=== PATIENT | female | born 1990 | race Caucasian/White ===

== ENCOUNTER 2017-12-30 12:17 | Emergency (ER) | payer BC ==
--- NOTE | 2017-12-30 12:20 | ER Report ---
History and Physical Time Seen By MD: 12:19 HPI/ROS This is a 27-year-old female who was brought in by ambulance after falling off of her horse. The patient does not remember the incident, but both paramedics and witnesses say she did have a helmet on. The helmet is intact. The patient remembers riding her horse in a large open field, and does not remember at which point she fell off the horse. The worse return to the barn without the patient at which point witnesses started to look for the patient and found her in the field semiconscious. Upon arrival to the emergency department, the patient is awake and alert but does not remember the turn of events. She is only complaining of a headache. No focal neuro deficits and no pain in her neck. She is not intoxicated and denies any other illicit drug use. She has no sign of his seizure such as tongue or lip lacerations, and no loss of bowel or bladder. Remainder of the 14 system rev: Yes Home Meds Active Scripts Ondansetron Hcl (ZOFRAN) 4 Mg Tablet, 4 MG PO Q6-8H for 5 Days, #20 TAB Prov:ADRIANA VEGA MD 12/30/17 Reviewed Nurses Notes: Yes Old Medical Records Reviewed: Yes Hx Smoking: No Smoking Status: Never Smoker Exposure to Second Hand Smoke?: No Hx Substance Use Disorder: No Hx Alcohol Use: No Constitutional Physical Exam General Appearance: The patient is alert, has no immediate need for airway p rotection and no current signs of toxicity. Head: no lacerations or hematomas. Eyes: Pupils equal and round no injection. Respiratory: Chest is non tender, lungs are clear to auscultation. Cardiac: regular rate and rhythm Gastrointestinal: Abdomen is soft and non tender, no masses, bowel sounds normal. Musculoskeletal: No spinal TTP Neck: Neck is supple and non tender. Extremities have full range of motion and are non tender. Skin: No rashes or lesions. DIFFERENTIAL DIAGNOSIS: After history and physical exam differential diagnosis was considered for intracranial hemorrhage, concussion, other traumatic injuries to include spinal injury. Medical Decision Making Data Points Laboratory Hematology Test 12/30/17 12:20 Red Blood Count 5.31 M/uL (4.17-5.56) Mean Corpuscular Volume 92.7 fL (80.0-96.0) Mean Corpuscular Hemoglobin 31.4 pg (26.0-33.0) Mean Corpuscular Hemoglobin Concent 33.9 g/dL (32.0-36.0) Red Cell Distribution Width 13.9 % (11.5-14.5) Mean Platelet Volume 9.2 fL (7.2-11.1) Neutrophils (%) (Auto) 38.4 % (39.4-72.5) Lymphocytes (%) (Auto) 50.7 % (17.6-49.6) Monocytes (%) (Auto) 9.1 % (4.1-12.4) Eosinophils (%) (Auto) 0.8 % (0.4-6.7) Basophils (%) (Auto) 1.0 % (0.3-1.4) Nucleated RBC Relative Count (auto) 0.1 /100WBC Neutrophils # (Auto) 4.0 K/uL (2.0-7.4) Lymphocytes # (Auto) 5.3 K/uL (1.3-3.6) Monocytes # (Auto) 0.9 K/uL (0.3-1.0) Eosinophils # (Auto) 0.1 K/uL (0.0-0.5) Basophils # (Auto) 0.1 K/uL (0.0-0.1) Nucleated RBC Absolute Count (auto) 0.01 K/uL Peripheral Blood Smear No Y/N Sodium Level 141 mmol/L (137-145) Potassium Level 3.3 mmol/L (3.5-5.0) Chloride Level 105 mmol/L (98-107) Carbon Dioxide Level 18 mmol/L (22-31) Blood Urea Nitrogen 13 mg/dl (7-18) Creatinine 0.90 mg/dl (0.52-1.04) Glomerular Filtration Rate Calc > 60.0 Random Glucose 145 mg/dl (75-110) Calcium Level 10.0 mg/dl (8.4-10.2) Total Bilirubin 0.5 mg/dl (0.2-1.3) Aspartate Amino Transf (AST/SGOT) 48 U/L (0-35) Alanine Aminotransferase (ALT/SGPT) 30 U/L (0-56) Alkaline Phosphatase 72 U/L (0-126) Total Protein 7.3 g/dl (6.3-8.2) Albumin 4.6 g/dl (3.5-5.0) Human Chorionic Gonadotropin, Qual Negative (NEGATIVE) Chemistry Test 12/30/17 12:20 White Blood Count 10.4 k/uL (4.5-11.0) Red Blood Count 5.31 M/uL (4.17-5.56) Hemoglobin 16.7 g/dL (12.0-16.0) Hematocrit 49.2 % (34.0-47.0) Mean Corpuscular Volume 92.7 fL (80.0-96.0) Mean Corpuscular Hemoglobin 31.4 pg (26.0-33.0) Mean Corpuscular Hemoglobin Concent 33.9 g/dL (32.0-36.0) Red Cell Distribution Width 13.9 % (11.5-14.5) Platelet Count 337 K/uL (150-450) Mean Platelet Volume 9.2 fL (7.2-11.1) Neutrophils (%) (Auto) 38.4 % (39.4-72.5) Lymphocytes (%) (Auto) 50.7 % (17.6-49.6) Monocytes (%) (Auto) 9.1 % (4.1-12.4) Eosinophils (%) (Auto) 0.8 % (0.4-6.7) Basophils (%) (Auto) 1.0 % (0.3-1.4) Nucleated RBC Relative Count (auto) 0.1 /100WBC Neutrophils # (Auto) 4.0 K/uL (2.0-7.4) Lymphocytes # (Auto) 5.3 K/uL (1.3-3.6) Monocytes # (Auto) 0.9 K/uL (0.3-1.0) Eosinophils # (Auto) 0.1 K/uL (0.0-0.5) Basophils # (Auto) 0.1 K/uL (0.0-0.1) Nucleated RBC Absolute Count (auto) 0.01 K/uL Peripheral Blood Smear No Y/N Glomerular Filtration Rate Calc > 60.0 Calcium Level 10.0 mg/dl (8.4-10.2) Total Bilirubin 0.5 mg/dl (0.2-1.3) Aspartate Amino Transf (AST/SGOT) 48 U/L (0-35) Alanine Aminotransferase (ALT/SGPT) 30 U/L (0-56) Alkaline Phosphatase 72 U/L (0-126) Total Protein 7.3 g/dl (6.3-8.2) Albumin 4.6 g/dl (3.5-5.0) Human Chorionic Gonadotropin, Qual Negative (NEGATIVE) ED Course/Re-evaluation ED Course No acute traumatic injuries noted other then a mild concussion. Patient is now eating and drinking and ambulating back and forth to the restroom. I gave her strict instructions as far as how to take care of a concussion. Suggest that she not write her horse until she is cleared for her concussion. She voices understanding. Her boyfriend is at the bedside and also agrees. Headache is improved. I counseled her to take Tylenol or ibuprofen if any pain continues. Decision to Disposition Date: Dec 30, 2017 Decision to Disposition Time: 15:05 Depart Departure Latest Vital Signs Impression: Primary Impression: Concussion Condition: Improved Disposition: HOME OR SELF-CARE New Scripts Ondansetron Hcl (ZOFRAN) 4 Mg Tablet 4 MG PO Q6-8H for 5 Days, #20 TAB Prov: ADRIANA VEGA MD 12/30/17 Patient Instructions: Concussion (ED) Problem Qualifiers Primary Impression: Concussion Encounter type: initial encounter Loss of consciousness presence/duration: with LOC of 30 min or less Qualified Codes: S06.0X1A - Concussion with loss of consciousness of 30 minutes or less, initial encounter ADRIANA VEGA MD Dec 30, 2017 12:19
[2017-12-30] MEDS ORDERED: MORPHINE 4 MG/ML SDV IVP ONE (12:40)
[2017-12-30] MEDS ORDERED: NS(*) 0.9% 1000 ML BAG 1,000 ML IV ONE (12:40)
[2017-12-30] MEDS ORDERED: ONDANSETRON 4 MG/2 ML VIAL IVP ONE ×2 (12:40→14:25)
[2017-12-30 12:44] LABS: PLATELET COUNT, AUTOMATED 337 K/uL (150-450)
[2017-12-30] MEDS ORDERED: IOPAMIDOL 76% 100 ML INFUS BTL 100 ML ONE (12:55)
[2017-12-30] MEDS ORDERED: DIPHTH/TETANUS/ACEL. PERTUSSIS IM ONLY ONE (13:25)
--- NOTE | 2017-12-30 13:40 | RADIOLOGY IMAGING REPORT ---
FACILITY: [facility] - [place] PATIENT NAME: Sammie Masterson : 1990 MR: [id number] V: [id number] EXAM DATE: ORDERING PHYSICIAN: ADRIANA VEGA TECHNOLOGIST: Location: [facility] Patient: Sammie Masterson : 1990 Visit/Account:[id number] Date of Sevice: 12/30/2017 CHEST SINGLE AP Indication: Fall off horse. Comparison: None available Findings: The lungs are clear. No pneumothorax or pleural effusion. Heart size is normal. IMPRESSION: 1. No acute cardiopulmonary process. Report Dictated By: Olu Noyola at 12/30/2017 1:22 PM Report E-Signed By: Olu Noyola at 12/30/2017 1:37 PM WSN:[id number]
--- NOTE | 2017-12-30 13:43 | RADIOLOGY IMAGING REPORT ---
FACILITY: [facility] PATIENT NAME: Sammie Masterson : 1990 MR: [id number] V: [id number] EXAM DATE: ORDERING PHYSICIAN: ADRIANA VEGA TECHNOLOGIST: [place] [facility] [place]ammie [place] : 1990 Visit/Account:[id number] Date of Sevice: 12/30/2017 Examination: Right femur 2 views HISTORY: Fall off horse. FINDINGS: Frontal and lateral views of the right femur are obtained a total of 4 images. No acute fra cture or osseous abnormality is seen. IMPRESSION: 1. No acute fracture of the right femur. Report Dictated By: Olu Noyola at 12/30/2017 1:37 PM Report E-Signed By: Olu Noyola at 12/30/2017 1:40 PM WSN:[id number]
--- NOTE | 2017-12-30 13:56 | RADIOLOGY IMAGING REPORT ---
[facility] PATIENT NAME: Sammie Masterson : 1990 MR: [id number] V: [id number] EXAM DATE: ORDERING PHYSICIAN: ADRIANA VEGA TECHNOLOGIST: Location: Patient: Sammie Masterson : 1990 Visit/Account:[id number] Date of Sevice: 12/30/2017 COMPUTED TOMOGRAPHY OF THE CHEST, ABDOMEN, AND PELVIS with CONTRAST DATE OF EXAM: 12/30/2017. INDICATION: . fall off horse. . TECHNIQUE: Contiguous axial CT images were obtained through the chest, abdomen, and pelvis after 80 cc [id number]. Coronal and sagittal reformatted images were submitted. COMPARISON: Chest radiograph of the same day. FINDINGS: Thyroid: The thyroid is incompletely imaged. No hematoma within the imaged region of the neck. Thoracic inlet: No adenopathy. Normal course and caliber of the imaged neck vessels. Heart and great vessels: Heart size is normal. Normal course and caliber of the great vessels. Mediastinum and mckinley: No mediastinal or hilar adenopathy. No hemomediastinum. No pneumomediastinum. There is residual thymic tissue. Lungs and pleura: Mild dependent atelectasis. No pulmonary contusion. No pneumothorax. No effusion o r consolidation. Breast and axilla: Breast tissue is unremarkable. Liver and hepatic vasculature: Indeterminate 1.1 cm hypodensity in the right lobe of the liver on se maegan 4 image 286. Gallbladder and bile ducts: Normal gallbladder. Spleen: Normal Pancreas: Normal Adrenals: Normal Kidneys, ureters and bladder: Normal appearing kidneys. Retroperitoneum and aorta: Normal caliber aorta. GI tract, mesentery and peritoneum: No bowel obstruction. No free fluid or free air. Uterus and adnexa: An IUD is present within the uterine fundus. Probable involuting cyst at the left ovary. Bones and soft tissues: No acute osseous abnormality IMPRESSION: No clear evidence of acute intrathoracic or intra-abdominal abnormality. One of the following dose optimization techniques was utilized in the performance of this exam: Autom ated exposure control; adjustment of the mA and/or kV according to the patient's size; or use of an i terative reconstruction technique. Specific details can be referenced in the facility's radiology C T exam operational policy. Report Dictated By: Noni Mark MD at 12/30/2017 1:37 PM Report E-Signed By: Noni Mark MD at 12/30/2017 1:52 PM WSN:[id number]
--- NOTE | 2017-12-30 14:14 | RADIOLOGY IMAGING REPORT ---
FACILITY: [facility] - [place] PATIENT NAME: Sammie Masterson : 1990 MR: [id number] V: [id number] EXAM DATE: ORDERING PHYSICIAN: ADRIANA VEGA TECHNOLOGIST: Location: [facility] - [place] Patient: Sammie Masterson : 1990 Visit/Account:[id number] Date of Sevice: 12/30/2017 CT OF THE BRAIN AND CERVICAL SPINE WITHOUT CONTRAST HISTORY: Fall from a horse. PROCEDURE: 3.0 mm contiguous axial sections were performed through the brain AND 2.0 mm axial images were obtained through the cervical spine. Sagittal and coronal reformats were submitted. FINDINGS: BRAIN: Brain and intracranial structures: There is no mass lesion, hemorrhage or acute infarct. Orbits (included portions): Normal. Scalp: Normal. Skull: No skull fracture. Paranasal sinuses and mastoid air cells (included portions): The imaged paranasal sinuses are clear. C-SPINE: Vertebral body heights are maintained. There is no cervical spine fracture or dislocation. IMPRESSION: 1. No evidence of acute intracranial abnormality. 2. No cervical spine fracture or dislocation. One of the following dose optimization techniques was utilized in the performance of this exam: Autom ated exposure control; adjustment of the mA and/or kV according to the patient's size; or use of an i terative reconstruction technique. Specific details can be referenced in the facility's radiology C T exam operational policy. Report Dictated By: Noni Mark MD at 12/30/2017 1:56 PM Report E-Signed By: Noni Mark MD at 12/30/2017 2:09 PM WSN:[id number]
--- NOTE | 2017-12-30 14:14 | RADIOLOGY IMAGING REPORT ---
FACILITY: [facility] - [place] PATIENT NAME: Sammie Masterson : 1990 MR: [id number] V: [id number] EXAM DATE: ORDERING PHYSICIAN: ADRIANA VEGA TECHNOLOGIST: [place] [facility] [place]: Sammie Masterson : 1990 Visit/Account:[id number] Date of Sevice: 12/30/2017 CT OF THE BRAIN AND CERVICAL SPINE WITHOUT CONTRAST HISTORY: Fall from a horse. PROCEDURE: 3.0 mm contiguous axial sections were performed through the brain AND 2.0 mm axial images were obtained through the cervical spine. Sagittal and coronal reformats were submitted. FINDINGS: BRAIN: Brain and intracranial structures: There is no mass lesion, hemorrhage or acute infarct. Orbits (included portions): Normal. Scalp: Normal. Skull: No skull fracture. Paranasal sinuses and mastoid air cells (included portions): The imaged paranasal sinuses are clear. C-SPINE: Vertebral body heights are maintained. There is no cervical spine fracture or dislocation. IMPRESSION: 1. No evidence of acute intracranial abnormality. 2. No cervical spine fracture or dislocation. One of the following dose optimization techniques was utilized in the performance of this exam: Autom ated exposure control; adjustment of the mA and/or kV according to the patient's size; or use of an i terative reconstruction technique. Specific details can be referenced in the facility's radiology C T exam operational policy. Report Dictated By: Noni Mark MD at 12/30/2017 1:56 PM Report E-Signed By: Noni Mark MD at 12/30/2017 2:09 PM WSN:[id number]
[2017-12-30] MEDS ORDERED: ONDA4TAB97 PO (15:49)
== END 2017-12-30 15:59 | disposition home or self-care (01) ==
LOC: ER 12:27
DX: S06.0X1A Concussion with loss of consciousness of 30 minutes or less, initial encounter (principal)
CPT/HCPCS: 70450; 71045; 71260; 72125; 73552; 74177; 84703; 85025; 86850; 86900; 86901; 90471; 90715; 96361; 96374; 96375; 96376; 99285; J2270; J2405; J7030; Q9967; 82040; 82247; 82310; 82374; 82435; 82565; 82947; 84075; 84132; 84155; 84295; 84450; 84460; 84520